=== PATIENT | female | born 1980 | race African-American/Black ===

== ENCOUNTER 2019-05-04 05:36 | Day surgery (SDC) | payer OTHER ==
[2019-05-02 10:20] LABS: ALBUMIN 3.6 g/dL (3.4-5.0); ANION GAP 7.4 (8-16); CARBON DIOXIDE 31.8 mmol/L (21-32); CREATININE 0.9 mg/dL (0.6-1.3); POTASSIUM 4.2 mmol/L (3.5-5.1); TOTAL BILIRUBIN 0.2 mg/dL (0.0-1.0)
[2019-05-02 13:48] LABS: BASOPHILS # (AUTO) 0.1 K/uL (0.00-0.22); BASOPHILS % (AUTO) 0.6 % (0.0-2.0); EOSINOPHILS # (AUTO) 0.1 K/uL (0-0.4); EOSINOPHILS % (AUTO) 0.9 % (0.0-4.0); HEMATOCRIT 39.8 % (36-48); HEMOGLOBIN 13.2 g/dL (12.0-16.0); LYMPHOCYTES # (AUTO) 3.4 K/uL (2.5-16.5); LYMPHOCYTES % (AUTO) 29.4 % (20.5-51.1); MEAN CORPUSCULAR HEMOGLOBIN 30 pg (27-31); MEAN CORPUSCULAR HGB CONC 33 g/dL (33-37); MEAN CORPUSCULAR VOLUME 91.6 fL (80-94); MONOCYTES # (AUTO) 0.5 K/uL (0.8-1.0); MONOCYTES % (AUTO) 4.6 % (1.7-9.3); NEUTROPHILS # (AUTO) 7.5 K/uL (1.8-7.7); NEUTROPHILS % (AUTO) 64.5 % (42.2-75.2); PLATELET COUNT (AUTO) 239 K/uL (140-450); RED BLOOD CELL COUNT(AUTO) 4.34 MIL/uL (4.20-5.40); RED CELL DISTRIBUTION WIDTH 13.4 % (11.6-13.7); WHITE BLOOD COUNT (AUTO) 11.7 K/uL (4.8-10.8)
[~2019-05-04] VITALS: Ht 170.2 cm; Wt 90.7 kg
[2019-05-04] MEDS ORDERED: DEXAMETHASONE 4 MG/ML VIAL ONE (07:41)
[2019-05-04] MEDS ORDERED: KETOROLAC 30 MG/ML VIAL ONE (07:41)
[2019-05-04] MEDS ORDERED: NEOSTIGMINE 1:1000 10 MG/10 ML VIAL ONE (07:41)
[2019-05-04] MEDS ORDERED: SUCCINYLCHOLINE CHLORIDE 200 MG/10 ML VIAL IVP ONE (07:41)
[2019-05-04] MEDS ORDERED: GLYCOPYRROLATE 0.2 MG/ML VIAL ONE (07:41)
[2019-05-04] MEDS ORDERED: PROPOFOL 200 MG/20 ML VIAL IV ONE (07:41)
[2019-05-04] MEDS ORDERED: HYDROmorphone PFS 2 MG/ML SYR ONE ×2 (07:41→08:54)
[2019-05-04] MEDS ORDERED: fentaNYL 0.05 MG/ML VIAL ONE (07:41)
[2019-05-04] MEDS ORDERED: ONDANSETRON 4 MG/2 ML VIAL ONE (07:41)
[2019-05-04] MEDS ORDERED: ROCURONIUM 50 MG/5 ML VIAL IV ONE (07:41)
[2019-05-04] MEDS ORDERED: DESFLURANE 240 ML BTL INH ONE (07:41)
[2019-05-04] MEDS ORDERED: BUPIVACAINE-MPF 0.25% 30 ML VIAL INJ ONE (08:07)
[2019-05-04] MEDS ORDERED: ONDANSETRON 4 MG/2 ML VIAL IVP PRN (08:35)
[2019-05-04] MEDS: HYDROmorphone 1 MG/ML AMP IVP PRN ×2 (08:50→09:00)
== END 2019-05-04 11:00 | disposition home or self-care (01) ==
LOC: MDS 05:36 → MMU 06:07 → MDS 11:00
PROVIDERS: ATTEND Obstetrics & Gynecology
DX: Z30.2 Encounter for sterilization (principal); E66.9 Obesity, unspecified
CPT/HCPCS: 36415; 58670; 80053; 84703; 85025; J0330; J1100; J1170; J1885; J2405; J2704; J2710; J3010; J3490; J7120